=== PATIENT | male | born 2000 | race African-American/Black ===

== ENCOUNTER 2024-04-18 15:04 | Emergency (ER) | payer MEDICAID, SELFPAY ==
[~2024-04-18] VITALS: Ht 162.6 cm; Wt 96.3 kg
[2024-04-18] MEDS ORDERED: LEVE250T5 PO (15:27)
[2024-04-18] MEDS ORDERED: LAMO100T80 PO ×2 (15:27→17:16)
[2024-04-18] MEDS ORDERED: TOPI200T7 PO (15:27)
[2024-04-18] MEDS ORDERED: CLON0.5T17 PO (15:36)
[2024-04-18] MEDS ORDERED: ONFI20TA PO (15:41)
[2024-04-18 17:27] VITALS: BP 106/53; TEMP 96.8; O2SAT 99
== END 2024-04-18 17:46 | disposition home or self-care (01) ==
LOC: M ED 15:04 → EDBD 15:04 → M ED 17:46
DX: G40.909 Epilepsy, unspecified, not intractable, without status epilepticus (principal)

== ENCOUNTER 2024-06-18 07:45 | Emergency (ER) | payer MEDICAID, SELFPAY ==
[~2024-06-18] VITALS: Ht 177.8 cm; Wt 85.7 kg
[~2024-06-18 07:45] MED LIST: CLON0.5T17 PO; LAMO100T80 PO; LEVE250T5 PO; ONFI20TA PO; TOPI200T7 PO
[2024-06-18] MEDS ORDERED: LAMO200T3 PO (08:22)
[2024-06-18] MEDS ORDERED: PILL CUTTER 1 EACH XX ONE (09:12)
[2024-06-18 09:25] LABS: AMPHETAMINES LEVEL URINE NEGATIVE (NEGATIVE); BARBITURATES URINE NEGATIVE (NEGATIVE); CANNABINOIDS URINE NEGATIVE (NEGATIVE); COCAINE METABOLITE URINE NEGATIVE (NEGATIVE); METHADONE URINE NEGATIVE (NEGATIVE); OPIATES URINE NEGATIVE (NEGATIVE); PHENCYCLIDINE URINE NEGATIVE (NEGATIVE)
[2024-06-18 09:26] LABS: BENZODIAZEPINES URINE POSITIVE (NEGATIVE)
[2024-06-18] MEDS: levETIRAcetam INJection 2,000 MG in D5W 100 ML IV ONE (09:27)
[2024-06-18 09:28] LABS: BLOOD UREA NITROGEN 11 MG/DL (9-23); CALCIUM LEVEL 8.8 MG/DL (8.5-10.1); CARBON DIOXIDE LEVEL 22 MMOL/L (20-31); CHLORIDE LEVEL 113 MMOL/L (98-107); CREATININE FOR GFR 0.97 MG/DL (0.70-1.30); GLOMERULAR FILTRATION RATE > 60.0 (>60); GLUCOSE, FASTING 88 MG/DL (60-100); SODIUM LEVEL 140 MMOL/L (136-145)
[2024-06-18] MEDS: lamoTRIgine 100MG TAB PO ONE (09:30)
[2024-06-18] MEDS: TOPIRAMATE (TopAMAX) 100 MG TAB PO ONE (09:32)
[2024-06-18 13:39] VITALS: BP 105/56; TEMP 97.6; O2SAT 99
[2024-06-21 03:49] LABS: LEVETIRACETAM (KEPPRA) 4.9 mcg/mL (6.0-46.0)
[2024-06-21 07:02] LABS: TOPIRAMATE LEVEL 4.2 mcg/mL (see note)
[2024-06-21 17:53] LABS: LAMOTRIGINE (LAMICTAL) 1.6 mcg/mL (2.5-15.0)
[2024-06-25 16:09] LABS: CLOBAZAM 111 ng/mL (30-300); DESMETHYLCLOBAZAM 285 ng/mL (300-3000)
== END 2024-06-18 13:43 | disposition home or self-care (01) ==
LOC: M ED 07:45
DX: G40.89 Other seizures (principal); G40.309 Generalized idiopathic epilepsy and epileptic syndromes, not intractable, without status epilepticus; Z91.148 Patient's other noncompliance with medication regimen for other reason; S00.81XA Abrasion of other part of head, initial encounter; W19.XXXA Unspecified fall, initial encounter; Y92.9 Unspecified place or not applicable; Y93.89 Activity, other specified; Y99.9 Unspecified external cause status; J45.909 Unspecified asthma, uncomplicated; Z79.899 Other long term (current) drug therapy
CPT/HCPCS: 70450; 72125; 80048; 80175; 80177; 80201; 80307; 93005; 96365; 99285; G0480; J1953